=== PATIENT | male | born 1970 | race Caucasian/White ===

== ENCOUNTER 2017-11-27 03:16 | Emergency (ER) | payer SELFPAY ==
[~2017-11-27] VITALS: Ht 177.8 cm; Wt 100.0 kg
[2017-11-27] MEDS ORDERED: DiphenhydrAMINE HCL 50 MG/ML VIAL IM ONE (04:00)
[2017-11-27] MEDS ORDERED: HALOPERIDOL LACTATE 5 MG/ML VIAL IM ONE (04:00)
[2017-11-27] MEDS ORDERED: LORazepam 2 MG/ML VIAL IM ONE (04:00)
[2017-11-27 04:27] LABS: BASOPHILS % (AUTO) 0.4 % (0.0-2.0); EOSINOPHILS % (AUTO) 1.1 % (1.0-6.0); HEMATOCRIT 50.4 % (41-53); HEMOGLOBIN 17.1 g/dL (13.5-17.5); LYMPHOCYTES % (AUTO) 20.9 % (22.0-44.0); MEAN CORPUSCULAR HEMOGLOBIN 29.9 pg (26.0-34.0); MEAN CORPUSCULAR HGB CONC 33.8 G/dL (31.0-37.0); MEAN CORPUSCULAR VOLUME 89 fL (80-100); MONOCYTES # (AUTO) 0.7 K/uL (0.1-1.0); MONOCYTES % (AUTO) 7.6 % (2.0-9.0); NEUTROPHILS # (AUTO) 6.6 K/uL (1.8-7.7); PLATELET COUNT (AUTO) 279 K/uL (150-450); RED BLOOD CELL COUNT(AUTO) 5.69 MIL/uL (4.50-5.90); RED CELL DISTRIBUTION WIDTH 14.8 % (11.5-14.5)
[2017-11-27 04:50] LABS: ALANINE AMINOTRANSFERASE 40 U/L (12-78); ALBUMIN 3.6 g/dL (3.4-5.0); ALKALINE PHOSPHATASE 86 U/L (46-116); ANION GAP 7 mmol/L (8-16); ASPARTATE AMINOTRANSFERASE 21 U/L (15-37); BILIRUBIN,TOTAL 0.5 mg/dL (0.1-1.0); CALCIUM, TOTAL 8.9 mg/dL (8.8-10.5); CARBON DIOXIDE 26 mmol/L (22-29); CHLORIDE 102 mmol/L (98-107); CREATININE 1.55 mg/dL (0.60-1.30); GLOMERULAR FILTR. RATE CALC 49 mL/min (>60); GLUCOSE,RANDOM 124 mg/dL (70-110); POTASSIUM 3.9 mmol/L (3.5-5.1); SODIUM SERUM 135 mmol/L (136-145); TOTAL PROTEIN, SERUM 7.2 g/dL (6.4-8.2)
[2017-11-27 05:00] LABS: UREA NITROGEN, BLOOD 27 mg/dL (7-18)
[2017-11-27] MEDS ORDERED: PERTUSS(ACELL),DIPH,TET VAC/PF 0.5 ML VIAL IM ONE (05:30)
[2017-11-27] MEDS ORDERED: BACITRACIN 0.9 GM PACKET OINTMENT TP ONE (05:30)
[2017-11-27 05:56] LABS: AMPHET/METH SCREEN,URINE POSITIVE (NEGATIVE); BARBITURATE SCREEN, URINE NEGATIVE (NEGATIVE); BENZODIAZEPINES SCREEN,URINE NEGATIVE (NEGATIVE); CANNABINOID SCREEN,URINE NEGATIVE (NEGATIVE); COCAINE SCREEN,URINE NEGATIVE (NEGATIVE); METHADONE SCREEN, URINE NEGATIVE (NEGATIVE); OPIATE SCREEN,URINE NEGATIVE (NEGATIVE)
[2017-11-27 05:57] LABS: PHENCYCLIDINE SCREEN,URINE NEGATIVE (NEGATIVE)
[2017-11-27 09:00] VITALS: BP 110/74
== END 2017-11-27 11:13 | disposition home or self-care (01) ==
LOC: EMS 03:18
DX: F25.9 Schizoaffective disorder, unspecified (principal); F15.90 Other stimulant use, unspecified, uncomplicated; F17.210 Nicotine dependence, cigarettes, uncomplicated
CPT/HCPCS: 36415; 80053; 80307; 85025; 90471; 90715; 96372; 99285; 99406; G0480; J1200; J1630; J2060

== ENCOUNTER 2017-11-28 17:05 | Inpatient (IN) | payer SELFPAY ==
[~2017-11-28] VITALS: Ht 180.3 cm; Wt 113.6 kg
[2017-11-28 17:23] LABS: GLUCOSE,POINT OF CARE 139 MG/DL (70-110)
[2017-11-28 17:42] LABS: BASOPHILS % (AUTO) 0.7 % (0.0-2.0); EOSINOPHILS % (AUTO) 0.7 % (1.0-6.0); HEMATOCRIT 49.6 % (41-53); LYMPHOCYTES # (AUTO) 2.3 K/uL (1.0-4.8); LYMPHOCYTES % (AUTO) 23.2 % (22.0-44.0); MEAN CORPUSCULAR HEMOGLOBIN 29.6 pg (26.0-34.0); MEAN CORPUSCULAR HGB CONC 34.2 G/dL (31.0-37.0); MEAN CORPUSCULAR VOLUME 87 fL (80-100); MONOCYTES # (AUTO) 0.4 K/uL (0.1-1.0); MONOCYTES % (AUTO) 4.4 % (2.0-9.0); NEUTROPHILS # (AUTO) 7.1 K/uL (1.8-7.7); PLATELET COUNT (AUTO) 255 K/uL (150-450); RED BLOOD CELL COUNT(AUTO) 5.72 MIL/uL (4.50-5.90); RED CELL DISTRIBUTION WIDTH 14.5 % (11.5-14.5)
[2017-11-28 17:50] LABS: ANION GAP 6 mmol/L (8-16); CALCIUM, TOTAL 8.9 mg/dL (8.8-10.5); CARBON DIOXIDE 27 mmol/L (22-29); CHLORIDE 104 mmol/L (98-107); CREATININE 1.09 mg/dL (0.60-1.30); GLOMERULAR FILTR. RATE CALC > 60 mL/min (>60); GLUCOSE,RANDOM 141 mg/dL (70-110); POTASSIUM 3.6 mmol/L (3.5-5.1); SODIUM SERUM 137 mmol/L (136-145); UREA NITROGEN, BLOOD 17 mg/dL (7-18)
[2017-11-28 17:58] LABS: AMMONIA 13 umol/L (11-32)
[2017-11-28 18:00] LABS: TROPONIN I < 0.02 ng/mL (0.00-0.05)
[2017-11-28] MEDS ORDERED: HALOPERIDOL 5 MG TABLET PO PRN (18:00)
[2017-11-28] MEDS ORDERED: ZOLPIDEM TARTRATE 10 MG TABLET PO PRN (18:00)
[2017-11-28] MEDS ORDERED: LORazepam 2 MG TABLET PO PRN (18:00)
[2017-11-28 18:08] LABS: SALICYLATE < 2.8 mg/dL (2.8-20.0)
[2017-11-28 18:15] LABS: ALANINE AMINOTRANSFERASE 36 U/L (12-78); ALBUMIN 3.4 g/dL (3.4-5.0); ALKALINE PHOSPHATASE 85 U/L (46-116); ASPARTATE AMINOTRANSFERASE 25 U/L (15-37); BILIRUBIN,TOTAL 0.2 mg/dL (0.1-1.0); CREATINE KINASE MB 1.4 ng/mL (0-5); CREATINE KINASE, TOTAL 609 U/L (39-308); TOTAL PROTEIN, SERUM 6.8 g/dL (6.4-8.2)
[2017-11-28 18:32] LABS: ACETAMINOPHEN < 2 mcg/mL (10-30)
[2017-11-28 18:37] LABS: GLUCOSE,POINT OF CARE 127 MG/DL (70-110)
[2017-11-28 18:43] LABS: AMPHET/METH SCREEN,URINE POSITIVE (NEGATIVE); BARBITURATE SCREEN, URINE NEGATIVE (NEGATIVE); BENZODIAZEPINES SCREEN,URINE NEGATIVE (NEGATIVE); CANNABINOID SCREEN,URINE NEGATIVE (NEGATIVE); COCAINE SCREEN,URINE NEGATIVE (NEGATIVE); METHADONE SCREEN, URINE NEGATIVE (NEGATIVE); OPIATE SCREEN,URINE NEGATIVE (NEGATIVE)
[2017-11-28 18:50] LABS: PHENCYCLIDINE SCREEN,URINE NEGATIVE (NEGATIVE)
[2017-11-28 19:38] LABS: GLUCOSE,POINT OF CARE 107 MG/DL (70-110)
[2017-11-28] MEDS ORDERED: LORazepam 2 MG/ML VIAL IVP ONE ×2 (20:00→21:15)
[2017-11-28 20:42] LABS: GLUCOSE,POINT OF CARE 129 MG/DL (70-110)
[2017-11-28 22:01] LABS: ANION GAP 7 mmol/L (8-16); CARBON DIOXIDE 31 mmol/L (22-29); CHLORIDE 102 mmol/L (98-107); CREATININE 1.19 mg/dL (0.60-1.30); GLOMERULAR FILTR. RATE CALC > 60 mL/min (>60); GLUCOSE,RANDOM 123 mg/dL (70-110); POTASSIUM 3.6 mmol/L (3.5-5.1); SODIUM SERUM 140 mmol/L (136-145); UREA NITROGEN, BLOOD 15 mg/dL (7-18)
[2017-11-28] MEDS ORDERED: LORazepam 2 MG/ML VIAL IM ONE (22:15)
[2017-11-28] MEDS ORDERED: DiphenhydrAMINE HCL 50 MG/ML VIAL IM ONE (22:15)
[2017-11-28] MEDS ORDERED: HALOPERIDOL LACTATE 5 MG/ML VIAL IM ONE (22:15)
[2017-11-28 22:25] LABS: ALANINE AMINOTRANSFERASE 34 U/L (12-78); ALBUMIN 3.7 g/dL (3.4-5.0); ALKALINE PHOSPHATASE 92 U/L (46-116); ASPARTATE AMINOTRANSFERASE 26 U/L (15-37); BILIRUBIN,TOTAL 0.3 mg/dL (0.1-1.0); CREATINE KINASE MB 1.3 ng/mL (0-5); CREATINE KINASE, TOTAL 712 U/L (39-308); TOTAL PROTEIN, SERUM 7.2 g/dL (6.4-8.2)
[2017-11-29 00:02] VITALS: BP 139/92
[2017-11-29] MEDS ORDERED: INFLUENZA VIRUS VACCINE QVS 2017-18 (3YR+)/PF 60 MCG/0.5 ML SYRINGE IM ONE (00:30)
[2017-11-29] MEDS ORDERED: ALBUTEROL SULFATE HFA 90 MCG/PUFF 8 GM INHALER IH PRN (06:15)
[2017-11-29] MEDS ORDERED: BACITRACIN 28.4 GM OINTMENT TP PRN (06:15)
[2017-11-29] MEDS ORDERED: MAGNESIUM HYDROXIDE SUSPENSION 30 ML UDCUP PO PRN (06:15)
[2017-11-29] MEDS ORDERED: IBUPROFEN 600 MG TABLET PO PRN (06:15)
[2017-11-29] MEDS ORDERED: LOPERAMIDE HCL 2 MG CAPSULE PO PRN (06:15)
[2017-11-29] MEDS ORDERED: BENZOCAINE/MENTHOL LOZENGE MM PRN (06:15)
[2017-11-29] MEDS ORDERED: MAG HYDROX/AL HYDROX/SIMETH ES 30 ML SUSPENSION UDCUP PO PRN (06:15)
[2017-11-29] MEDS ORDERED: ACETAMINOPHEN 325 MG TABLET PO PRN (06:15)
[2017-11-29] MEDS ORDERED: CloNIDine HCL 0.1 MG TABLET PO PRN (06:15)
[2017-11-29] MEDS ORDERED: PETROLATUM,WHITE 71 GM JELLY TP PRN (06:15)
[2017-11-29] MEDS ORDERED: ONDANSETRON HCL 4 MG TABLET PO PRN (06:15)
[2017-11-29 08:42] LABS: CHOL/HDL RATIO 5.1 (4.2-7.3)
[2017-11-29 09:14] VITALS: BP 136/82
[2017-11-29 16:00] VITALS: BP 127/78
[2017-11-29] MEDS: DIVALPROEX SODIUM 500 MG DR TABLET PO SCH (21:06)
[2017-11-29] MEDS: RisperiDONE 2 MG TABLET PO SCH (21:06)
[2017-11-30 06:31] VITALS: BP 143/74
[2017-11-30 08:39] LABS: HEMOGLOBIN A1C 5.3 % (4.5-6.2)
[2017-11-30 08:46] VITALS: BP 126/76
[2017-11-30] MEDS: LISINOPRIL 10 MG TABLET PO SCH (09:01)
[2017-11-30] MEDS: DIVALPROEX SODIUM 500 MG DR TABLET PO SCH ×2 (09:01→16:57)
[2017-11-30] MEDS: RisperiDONE 2 MG TABLET PO SCH ×2 (09:01→16:57)
[2017-11-30 10:13] LABS: CREATINE KINASE, TOTAL 180 U/L (39-308)
[2017-11-30 10:54] LABS: CREATINE KINASE MB 0.5 ng/mL (0-5)
[2017-11-30 16:34] VITALS: BP 130/65
[2017-12-01 06:39] VITALS: BP 127/69
[2017-12-01 08:42] VITALS: BP 136/81
[2017-12-01] MEDS: LISINOPRIL 10 MG TABLET PO SCH (10:28)
[2017-12-01] MEDS: RisperiDONE 2 MG TABLET PO SCH (10:28)
[2017-12-01] MEDS: DIVALPROEX SODIUM 500 MG DR TABLET PO SCH (10:28)
[2017-12-01] MEDS ORDERED: DIVA500T35 PO (14:23)
[2017-12-01] MEDS ORDERED: RISP2 PO (14:24)
[2017-12-01] MEDS ORDERED: LISI-661 PO (14:25)
[2017-12-01 16:29] VITALS: BP 124/72
== END 2017-12-01 16:30 | disposition home or self-care (01) | DRG 885 ==
LOC: EMS 17:08 → 3EI 20:30 → B3A 22:56
PROVIDERS: ADMIT Psychiatry & Neurology Psychiatry; ATTEND Psychiatry & Neurology Psychiatry
DX: F25.9 Schizoaffective disorder, unspecified (principal); M62.82 Rhabdomyolysis; T50.901A Poisoning by unspecified drugs, medicaments and biological substances, accidental (unintentional), initial encounter; E11.9 Type 2 diabetes mellitus without complications; Z28.21 Immunization not carried out because of patient refusal; Z83.3 Family history of diabetes mellitus; Z82.49 Family history of ischemic heart disease and other diseases of the circulatory system; E66.9 Obesity, unspecified; E78.5 Hyperlipidemia, unspecified; E86.0 Dehydration; F15.10 Other stimulant abuse, uncomplicated; F17.200 Nicotine dependence, unspecified, uncomplicated; F32.9 Major depressive disorder, single episode, unspecified; F41.9 Anxiety disorder, unspecified; G47.00 Insomnia, unspecified; I10 Essential (primary) hypertension; R00.0 Tachycardia, unspecified; Z71.6 Tobacco abuse counseling; Z68.34 Body mass index [BMI] 34.0-34.9, adult
CPT/HCPCS: 82962; 83036; 93005; G0480; G0481; J2060